=== PATIENT | female | born 1985 | race Caucasian/White ===

== ENCOUNTER 2020-10-17 15:50 | Emergency (ER) | payer MEDICAID ==
[~2020-10-17] VITALS: Ht 162.6 cm; Wt 68.0 kg
[2020-10-17 16:05] VITALS: BP_SYST 119
[2020-10-17] MEDS ORDERED: MAG HYDROX/AL HYDROX/SIMETH 30 ML, DICYCLOMINE HCL 20 MG, LIDOCAINE VISCOUS 2% 15ML (PO... PO ONE ×3 (16:45)
[2020-10-17] MEDS ORDERED: FAMOTIDINE 20 MG TABLET PO ONE (16:45)
[2020-10-17] MEDS ORDERED: BISM262O28 PO (16:56)
[2020-10-17] MEDS ORDERED: FAMO-132 PO (16:56)
[2020-10-17 17:21] VITALS: BP_SYST 119
== END 2020-10-17 17:22 | disposition home or self-care (01) ==
LOC: SED 15:50
DX: R10.13 Epigastric pain (principal); R11.2 Nausea with vomiting, unspecified
CPT/HCPCS: 81025; 99283; J2001